=== PATIENT | male | born 2000 ===

== ENCOUNTER 2021-11-22 14:56 | Emergency (ER) | payer BC ==
[~2021-11-22] VITALS: Ht 177.8 cm; Wt 65.8 kg
[2021-11-22] MEDS ORDERED: CEPH500T PO (15:33)
--- NOTE | 2021-11-22 15:34 | ED Lower Extremity ---
General Chief Complaint: Lower Extremity Stated Complaint: PAIN IN TOE ON LEFT FOOT/INFECTION Source: patient History of Present Illness Date Seen by Provider: Nov 22, 2021 Time Seen by Provider: 15:24 Initial Comments PT ARRIVES VIA POV C/O INFECTED INGROWN TOENAIL--LEFT GREAT TOE THIS IS A CHRONIC PROBLEM FOR YEARS, AND PT IS CONSTANTLY CUTTING ON NAILS AND TRYING TO DIG IT OUT HAS BEEN MORE PAINFUL, AND MORE SWOLLEN THE LAST 1 1/2-2 WEEKS STATES HE "KEEPS POPPING PUS POCKETS IN IT" PT WEARS REGULAR WORK BOOTS 12 HOURS A DAY --NOT STEEL TOED BOOTS PT IS NOT DIABETIC AND NO CHRONIC MEDICAL PROBLEMS PT HAS NOT TAKEN ANYTHING FOR PAIN AT ANY TIME HAS NOT SOUGHT CARE AT ANY TIME UNTIL TODAY SYMPTOMS NOT ANY DIFFERENT TODAY PCP: NONE--STATES HE JUST MOVED HERE ABOUT 3 MONTHS AGO FROM [place], BUT DID NOT HAVE A DR. THERE EITHER Allergies and Home Medications Patient Home Medication List Home Medication List Reviewed: Yes Cephalexin (Cephalexin) 500 Mg Tablet, 500 MG PO QID Prescribed by: ESTRELLA SALAS on 11/22/21 1533 Review of Systems Constitutional: no symptoms reported Musculoskeletal: see HPI Skin: see HPI Psychiatric/Neurological: No Symptoms Reported Past Xkaxfrt-Bejnbg-Nezhvt Hx Patient Social History Smoking Status: Never a Smoker Smokeless Tobacco Frequency: Never a User Use of E-Cig and/or Vaping dev: Yes E-Cig or Vaping type used: Nicotine Use of E-Cig and/or Vaping Jhony: Current Everyday User Substance use?: No Alcohol Use?: Yes Alcohol Frequency: Once in a while Immunizations Up To Date COVID19 Vaccine Meat [employer]: Get Me Listed Past Medical History Surgeries: No Respiratory: No Cardiac: No Neurological: No Genitourinary: No Gastrointestinal: No Musculoskeletal: No Endocrine: No HEENT: No Cancer: No Psychosocial: No Integumentary: No Blood Disorders: No Physical Exam Vital Signs Capillary Refill : Height, Weight, BMI Height: '" Weight: lbs. oz. kg; BMI Method: General Appearance: WD/WN, no apparent distress, thin, other (FILTHY, MALODOROUS) Feet: left foot other (LEFT GREAT TOENAIL / LATERAL ASPECT WITH MODERATE ERYTHEMA AND EDEMA AND TENDERNESS AND INGROWN LATERAL NAIL EDGE. . NO DRAINAGE, NO PURULENCE, NO FLUCTUANCE. NO STREAKS, ) Neurologic/Tendon: normal sensation, normal motor functions, normal tendon functions Departure Impression Primary Impression: INFECTED INGROWN LEFT GREAT TOENAIL Disposition: 01 HOME, SELF-CARE Condition: Stable Departure-Patient Inst. Decision time for Depature: 15:30 Referrals: NO,LOCAL PHYSICIAN (PCP) Primary Care Physician INDY SCHRADER DPM MARTHA CALDERON DPM JENNY AARON DPM Patient Instructions: INGROWN TOENAIL-INFECTED Add. Discharge Instructions: LEAVE TOE AND TOENAIL ALONE--DO NOT CUT, POKE AT, PICK AT OR SQUEEZE THE AREA SOAK IN WARM SOAPY WATER 2-3 TIMES A DAY AVOID TIGHT SHOES AND SOCKS MUCH POSSIBLE FOLLOW UP WITH STORAGE ARCHITECT OF CHOICE NEXT WEEK--CALL TODAY OR THURSDAY TO SCHEDULE APPOINTMENT--LIST PROVIDED All discharge instructions reviewed with patient and/or family. Voiced understanding. Scripts Cephalexin (Cephalexin) 500 Mg Tablet 500 MG PO QID, #28 TAB Prov: ESTRELLA SALAS DO 11/22/21 ESTRELLA SALAS DO Nov 22, 2021 15:34
[2021-11-22 15:43] VITALS: BP 124/70
== END 2021-11-22 15:43 | disposition home or self-care (01) ==
LOC: ER 15:03
DX: L60.0 Ingrowing nail (principal); F17.290 Nicotine dependence, other tobacco product, uncomplicated
CPT/HCPCS: 99281